=== PATIENT | female | born 1950 | race Two or more races ===

== ENCOUNTER 2023-09-22 20:34 | Emergency (ER) | payer MEDICARE ==
[~2023-09-22] VITALS: Ht 147.3 cm; Wt 49.4 kg
[2023-09-22 21:31] VITALS: PULSE 82; RESP 18; TEMP 97.9
[2023-09-22] MEDS ORDERED: LIDOCAINE 1% W/EPINEPHRINE 20 ML VIAL ONE (21:47)
[2023-09-22] MEDS: BACITRACIN ZINC 0.9GM TP ONE (22:29)
[2023-09-22] MEDS: ACETAMINOPHEN 325 MG TAB PO ONE (22:31)
[2023-09-22] MEDS ORDERED: ACETAMINOPHEN 325 MG TAB ONE (22:34)
[2023-09-23 06:28] VITALS: BP 131/84; PULSE 73; RESP 18; TEMP 98.3; O2SAT 99
== END 2023-09-22 23:45 | disposition home or self-care (01) ==
LOC: FSED 21:15
DX: S01.112A Laceration without foreign body of left eyelid and periocular area, initial encounter (principal); S02.32XA Fracture of orbital floor, left side, initial encounter for closed fracture; W01.0XXA Fall on same level from slipping, tripping and stumbling without subsequent striking against object, initial encounter; Y93.02 Activity, running; Y92.89 Other specified places as the place of occurrence of the external cause
CPT/HCPCS: 70450; 70486; 99284

== ENCOUNTER 2023-09-27 15:04 | Emergency (ER) | payer MEDICARE ==
[~2023-09-27] VITALS: Ht 147.3 cm; Wt 49.4 kg
[2023-09-27 15:20] VITALS: PULSE 59; RESP 18; TEMP 97.9; O2SAT 98
[2023-09-27] MEDS: TETANUS/DIPHTHERIA TOX ADULT 0.5 ML SYR IM ONE (16:00)
== END 2023-09-27 15:55 | disposition home or self-care (01) ==
LOC: FSED 15:15
DX: Z48.01 Encounter for change or removal of surgical wound dressing (principal)
CPT/HCPCS: 90714; 99282

== ENCOUNTER 2023-09-30 19:22 | Emergency (ER) | payer MEDICARE ==
[~2023-09-30] VITALS: Ht 147.3 cm; Wt 49.4 kg
[2023-09-30 20:42] VITALS: PULSE 64; RESP 18; TEMP 97
[2023-09-30 20:48] VITALS: BP 140/98; PULSE 64; RESP 18; TEMP 97; O2SAT 99
== END 2023-09-30 20:48 | disposition home or self-care (01) ==
LOC: FSED 20:27
DX: S01.112D Laceration without foreign body of left eyelid and periocular area, subsequent encounter (principal); Z48.02 Encounter for removal of sutures; W19.XXXD Unspecified fall, subsequent encounter
CPT/HCPCS: 99282